=== PATIENT | male | born 1970 | race Caucasian/White ===

== ENCOUNTER 2017-05-24 09:49 | Emergency (ER) | payer OTHER ==
[~2017-05-24] VITALS: Ht 185.4 cm; Wt 72.0 kg
[~2017-05-24 09:49] MED LIST: DOXY100T PO; IBUP800T23 PO
[2017-05-24 10:17] VITALS: BP 148/86; PULSE 78; RESP 15; TEMP 98.1; O2SAT 100
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
== END 2017-05-24 10:50 | disposition home or self-care (01) ==
LOC: NEPC 09:49
DX: R45.851 Suicidal ideations (principal); I10 Essential (primary) hypertension; F17.200 Nicotine dependence, unspecified, uncomplicated
CPT/HCPCS: 99283